=== PATIENT | male | born 1960 | race Caucasian/White ===

== ENCOUNTER → 2017-07-03 | Outpatient (CLI) | payer BC ==
[~2017-07-03] MED LIST: NS 100 ML IV 100 ML IV ONE
[2017-07-03 09:35] LABS: CREATININE 1.59 mg/dL (0.70-1.30)
--- NOTE | 2017-07-03 11:57 | CT ---
HISTORY: Abdominal pain, hernia Study: CT abdomen pelvis with contrast Comparison: None Technique: Axial post-contrast images with coronal and sagittal reformats. Dose reduction procedures were used with MA/kv adjusted for body size. Findings: The lung bases are clear. A small hiatal hernia is present. The liver, spleen, adrenal glands, and pa ncreas are within normal limits. No opaque stones are visible within the gallbladder. The kidneys are unobstructed and without stones or masses. There is a tiny right renal cyst present. No ureteral olivia culi are identified. The appendix is normal. Calcific atherosclerotic changes present in a nondilated abdominal aorta. No enlarged intraperitoneal or retroperitoneal lymphadenopathy is identified. There are no findings suggestive of diverticulitis. There is a question of some mild transmural thickening involving the descending colon sigmoid colon and rectum. This may partially be due to nondistention however inflammatory com infectious com or ischemic colitis can have this appearance. Clinical and hi storical correlation is recommended. Ischemic colitis should be clinically excluded. No pelvic masses , pelvic fluid, or pelvic lymphadenopathy is identified. No bladder abnormality is identified. The pr ostate is enlarged measuring 5.1 x 4.2 by 4.3 centimeters. IMPRESSION: Mild transmural thickening involving the descending colon, sigmoid colon and rectum suggestive of dev eloping colitis which could be infectious, inflammatory or ischemic in origin. Ischemic colitis shoul d be clinically excluded. Very small hiatal hernia. Enlarged prostate Reported By:
== END | disposition home or self-care (01) ==
LOC: RAD 08:44
PROVIDERS: ATTEND Nurse Practitioner Family
DX: K44.9 Diaphragmatic hernia without obstruction or gangrene (principal); N40.0 Benign prostatic hyperplasia without lower urinary tract symptoms
CPT/HCPCS: 36415; 74177; 82565; 84520; A4222

== ENCOUNTER → 2017-07-04 | Outpatient (CLI) | payer BC ==
[2017-07-04 15:15] LABS: CRYPTOSPORIDIUM PARVUM ANTIGEN NEGATIVE (NEGATIVE); GIARDIA LAMBLIA ANTIGEN NEGATIVE (NEGATIVE); STOOL FOR WBC NEGATIVE (NEGATIVE)
== END | disposition home or self-care (01) | DRG 392 ==
LOC: LAB 11:57
PROVIDERS: ATTEND Nurse Practitioner Family
DX: R10.84 Generalized abdominal pain (principal); K52.89 Other specified noninfective gastroenteritis and colitis
CPT/HCPCS: 82270; 82705; 83630; 87045; 87328; 87329; 87336; 87427; 87493; 87899

== ENCOUNTER 2017-08-27 09:54 | Day surgery (SDC) | payer BC ==
[2017-08-27] MEDS ORDERED: D5 LR 1000 ML 1,000 ML IV ONE (10:22)
[2017-08-27] MEDS ORDERED: DIPRIVAN VIAL 20 ML ONE (11:58)
[2017-08-27 12:48] VITALS: BP 128/78
== END 2017-08-27 12:35 | disposition home or self-care (01) ==
LOC: SURG1 09:54
PROVIDERS: ATTEND Internal Medicine Gastroenterology
PROC: 0DB68ZX Excision of Stomach, Via Natural or Artificial Opening Endoscopic, Diagnostic (ICD-10-PCS; principal; 2017-08-27 12:00)
PROC: 0DB88ZX Excision of Small Intestine, Via Natural or Artificial Opening Endoscopic, Diagnostic (ICD-10-PCS; principal; 2017-08-27 12:00)
PROC: 0DJ08ZZ Inspection of Upper Intestinal Tract, Via Natural or Artificial Opening Endoscopic (ICD-10-PCS; principal; 2017-08-27 12:00)
DX: R10.13 Epigastric pain (principal); K21.9 Gastro-esophageal reflux disease without esophagitis; K22.10 Ulcer of esophagus without bleeding; K29.60 Other gastritis without bleeding; K26.9 Duodenal ulcer, unspecified as acute or chronic, without hemorrhage or perforation
CPT/HCPCS: A4217; J3490; J7120

== ENCOUNTER 2017-09-03 09:41 | Day surgery (SDC) | payer BC ==
[2017-09-03] MEDS ORDERED: D5 LR 1000 ML 1,000 ML IV ONE (09:55)
[2017-09-03] MEDS ORDERED: DIPRIVAN VIAL 20 ML ONE (11:18)
[2017-09-03 12:07] VITALS: BP 114/61
== END 2017-09-03 12:07 | disposition home or self-care (01) ==
LOC: SURG1 09:41
PROVIDERS: ATTEND Internal Medicine Gastroenterology
PROC: 0DBH8ZX Excision of Cecum, Via Natural or Artificial Opening Endoscopic, Diagnostic (ICD-10-PCS; principal; 2017-09-03 12:45)
PROC: 0DBL8ZX Excision of Transverse Colon, Via Natural or Artificial Opening Endoscopic, Diagnostic (ICD-10-PCS; principal; 2017-09-03 12:45)
PROC: 0DJD8ZZ Inspection of Lower Intestinal Tract, Via Natural or Artificial Opening Endoscopic (ICD-10-PCS; principal; 2017-09-03 12:45)
DX: Z12.11 Encounter for screening for malignant neoplasm of colon (principal); R10.84 Generalized abdominal pain; K92.1 Melena; K63.5 Polyp of colon; K64.0 First degree hemorrhoids; D12.0 Benign neoplasm of cecum
CPT/HCPCS: A4217; J3490; J7120